=== PATIENT | female | born 1970 | race Caucasian/White ===

== ENCOUNTER 2018-01-18 06:02 | Day surgery (SDC) | payer OTHER ==
--- NOTE | 2018-01-18 07:17 | HP ---
Admitting History and Physical - Admission History of Present Illness: Patient is a 47 y/o female with a past medical history of depression and microcytic anemia. Patient presents for ect, she was recently discharged from [facility] after a 2 month stay for depression. Patient reports she received 25 ects at [facility]. Patient reports feeling well, she reports compliance with prescribed medications. She denies any suicidal or homicidal ideation, visual or auditory hallucinations. History Source: Patient Limitations to Obtaining History: No Limitations - Past Medical History ...LMP: 12/29/17 - Smoking History Smoking history: Never smoked Have you smoked in the past 12 months: No - Alcohol/Substance Use Hx Alcohol Use: No History of Substance Use: reports: None - Social History Usual Living Arrangement: Yes: Alone ADL: Independent History of Recent Travel: No Home Medications - Allergies Allergies/Adverse Reactions: Allergies Allergy/AdvReac Type Severity Reaction Status Date / Time No Known Drug Allergies Allergy Verified 01/17/18 11:46 Family Disease History - Family Disease History Family History: Denies Review of Systems - Review of Systems Constitutional: reports: No Symptoms Eyes: reports: No Symptoms HENT: reports: No Symptoms Neck: reports: No Symptoms Cardiovascular: reports: No Symptoms Respiratory: reports: No Symptoms Gastrointestinal: reports: No Symptoms Genitourinary: reports: No Symptoms Musculoskeletal: reports: No Symptoms Integumentary: reports: No Symptoms Neurological: reports: No Symptoms Endocrine: reports: No Symptoms Hematology/Lymphatic: reports: No Symptoms Psychiatric: reports: Depression Physical Examination Constitutional: Yes: Well Nourished, No Distress, Calm Eyes: Yes: WNL, Conjunctiva Clear, EOM Intact HENT: Yes: WNL, Atraumatic, Normocephalic Neck: Yes: WNL, Supple, Trachea Midline Cardiovascular: Yes: WNL, Regular Rate and Rhythm, S1, S2 Respiratory: Yes: WNL, Regular, CTA Bilaterally Gastrointestinal: Yes: WNL, Normal Bowel Sounds, Soft ...Rectal Exam: Yes: Deferred Renal/: Yes: WNL Musculoskeletal: Yes: WNL Extremities: Yes: WNL Edema: No Peripheral Pulses WNL: Yes Integumentary: Yes: WNL Neurological: Yes: WNL, Alert, Oriented ...Motor Strength: WNL Psychiatric: Yes: WNL, Alert, Oriented Labs: reviewed 5/18 Imaging - Results EKG: Image Reviewed, Other (nsr) Assessment/Plan patient is a 47 y/o female that presents for ect, labs and ekg reviewed patient is medically optimized for procedure informed consent, risks/benefits to be obtained by Dr landeros
[2018-01-18 07:50] VITALS: TEMP 98.4; BMI 26.5
[2018-01-18] MEDS ORDERED: KETAMINE HCL 500 MG/10 ML VIAL ONE (08:51)
[2018-01-18 10:05] VITALS: PULSE 77
[2018-01-18 11:27] VITALS: BP 133/83
== END 2018-01-18 10:45 | disposition home or self-care (01) ==
LOC: FECT 06:02
PROVIDERS: ATTEND Psychiatry & Neurology Psychiatry
PROC: GZB4ZZZ Other Electroconvulsive Therapy (ICD-10-PCS; principal; 2018-01-18 08:00)
DX: F33.2 Major depressive disorder, recurrent severe without psychotic features (principal)
CPT/HCPCS: 36415; 84703; 90870; 94760

== ENCOUNTER 2018-02-01 05:46 | Day surgery (SDC) | payer OTHER ==
[2018-02-01 06:47] VITALS: BMI 26.5
[2018-02-01] MEDS ORDERED: KETAMINE HCL 500 MG/10 ML VIAL ONE (07:33)
[2018-02-01 09:01] VITALS: TEMP 97.8
[2018-02-01] MEDS ORDERED: oxyCODONE HCL 5 MG TABLET PO PRN (09:29)
[2018-02-01] MEDS ORDERED: ONDANSETRON 4 MG/2 ML VIAL IVPUSH PRN (09:29)
[2018-02-01] MEDS ORDERED: LACTATED RINGERS SOLUTION 1,000 ML IV SCH (09:30)
[2018-02-01] MEDS ORDERED: ACETAMINOPHEN 325 MG TABLET (FP) PO PRN (09:42)
[2018-02-01 09:48] VITALS: BP 116/67; PULSE 71
== END 2018-02-01 10:00 | disposition home or self-care (01) ==
LOC: FECT 05:46
PROVIDERS: ATTEND Psychiatry & Neurology Psychiatry
PROC: GZB4ZZZ Other Electroconvulsive Therapy (ICD-10-PCS; principal; 2018-02-01 07:30)
DX: F33.2 Major depressive disorder, recurrent severe without psychotic features (principal)
CPT/HCPCS: 84703; 90870; 94760

== ENCOUNTER 2018-02-04 05:39 | Day surgery (SDC) | payer OTHER ==
[2018-02-02 14:54] VITALS: BMI 26.5
[2018-02-04] MEDS ORDERED: KETAMINE HCL 500 MG/10 ML VIAL ONE (06:52)
[2018-02-04] MEDS ORDERED: ACETAMINOPHEN INJECTION 100 ML IVPB ONE (06:52)
[2018-02-04 08:37] VITALS: TEMP 98.1
[2018-02-04 10:26] VITALS: BP 110/62; PULSE 86
== END 2018-02-04 10:15 | disposition home or self-care (01) ==
LOC: FECT 05:39
PROVIDERS: ATTEND Psychiatry & Neurology Psychiatry
PROC: GZB4ZZZ Other Electroconvulsive Therapy (ICD-10-PCS; principal; 2018-02-04 08:15)
DX: F33.2 Major depressive disorder, recurrent severe without psychotic features (principal)
CPT/HCPCS: 90870; 94760; J0131

== ENCOUNTER 2018-02-11 05:41 | Day surgery (SDC) | payer OTHER ==
[2018-02-11 06:45] VITALS: BMI 26.5
[2018-02-11] MEDS ORDERED: KETAMINE HCL 500 MG/10 ML VIAL ONE (07:34)
[2018-02-11] MEDS ORDERED: ACETAMINOPHEN INJECTION 100 ML IVPB ONE (08:07)
[2018-02-11 09:15] VITALS: TEMP 98.2
[2018-02-11 09:43] VITALS: BP 134/74; PULSE 88
== END 2018-02-11 09:50 | disposition home or self-care (01) ==
LOC: FECT 05:41
PROVIDERS: ATTEND Psychiatry & Neurology Psychiatry
PROC: GZB4ZZZ Other Electroconvulsive Therapy (ICD-10-PCS; principal; 2018-02-11 07:15)
DX: F33.2 Major depressive disorder, recurrent severe without psychotic features (principal)
CPT/HCPCS: 90870; 94760; J0131

== ENCOUNTER 2018-02-15 05:44 | Day surgery (SDC) | payer OTHER ==
[2018-02-15 06:24] VITALS: TEMP 97.6; BMI 29.0
[2018-02-15] MEDS ORDERED: KETAMINE HCL 500 MG/10 ML VIAL ONE (07:07)
[2018-02-15] MEDS ORDERED: ONDANSETRON 4 MG/2 ML VIAL IVPUSH PRN (09:42)
[2018-02-15] MEDS ORDERED: LACTATED RINGERS SOLUTION 1,000 ML IV SCH (09:45)
[2018-02-15 10:04] VITALS: BP 101/59; PULSE 77
== END 2018-02-15 10:06 | disposition home or self-care (01) ==
LOC: FECT 05:44
PROVIDERS: ATTEND Psychiatry & Neurology Psychiatry
PROC: GZB4ZZZ Other Electroconvulsive Therapy (ICD-10-PCS; principal; 2018-02-15 08:00)
DX: F33.2 Major depressive disorder, recurrent severe without psychotic features (principal)
CPT/HCPCS: 84703; 90870; 94760

== ENCOUNTER 2018-02-18 05:45 | Day surgery (SDC) | payer OTHER ==
[2018-02-15 10:38] VITALS: BMI 29.0
[2018-02-18] MEDS ORDERED: KETAMINE HCL 500 MG/10 ML VIAL ONE (08:11)
[2018-02-18 10:17] VITALS: TEMP 98
[2018-02-18 10:25] VITALS: BP 110/60; PULSE 76
== END 2018-02-18 09:45 | disposition home or self-care (01) ==
LOC: FECT 05:45
PROVIDERS: ATTEND Psychiatry & Neurology Psychiatry
PROC: GZB4ZZZ Other Electroconvulsive Therapy (ICD-10-PCS; principal; 2018-02-18 07:15)
DX: F33.2 Major depressive disorder, recurrent severe without psychotic features (principal)
CPT/HCPCS: 84703; 90870; 94760

== ENCOUNTER 2018-02-22 05:37 | Day surgery (SDC) | payer OTHER ==
[2018-02-15 10:41] VITALS: BMI 29.0
[2018-02-22] MEDS ORDERED: ONDANSETRON 4 MG/2 ML VIAL IVPUSH PRN (07:14)
[2018-02-22] MEDS ORDERED: LACTATED RINGERS SOLUTION 1,000 ML IV SCH (07:15)
--- NOTE | 2018-02-22 07:18 | HP ---
Admitting History and Physical - Admission History of Present Illness: Patient is a 47 y/o female with a past medical history of depression and microcytic anemia. Patient presents for ect, her last ect was 02/18/18. Patient reports feeling improved since starting ect. She denies any changes to medications or recent illnesses. Patient reports feeling well, she denies any suicidal or homicidal ideation or visual or auditory hallucinations. Patient reports compliance with prescribed medications. History Source: Patient Limitations to Obtaining History: No Limitations - Past Medical History ...LMP: 01/31/18 - Smoking History Smoking history: Never smoked Have you smoked in the past 12 months: No - Alcohol/Substance Use Hx Alcohol Use: No History of Substance Use: reports: None - Social History Usual Living Arrangement: Yes: With Spouse ADL: Independent History of Recent Travel: No Home Medications - Allergies Allergies/Adverse Reactions: Allergies Allergy/AdvReac Type Severity Reaction Status Date / Time No Known Drug Allergies Allergy Verified 02/18/18 07:23 - Home Medications Home Medications: Ambulatory Orders Brexpiprazole [Rexulti] 2 mg PO DAILY 01/18/18 Escitalopram Oxalate [Lexapro -] 20 mg PO DAILY 01/18/18 Lamotrigine [LaMICtal -] 450 mg PO HS 01/18/18 Quetiapine Fumarate [Seroquel -] 400 mg PO BID 01/18/18 clonazePAM [Klonopin -] 0.5 mg PO BID 01/18/18 Ibuprofen [Advil -] 400 mg PO QID PRN 02/15/18 Family Disease History - Family Disease History Family History: Denies Review of Systems - Review of Systems Constitutional: reports: No Symptoms Eyes: reports: No Symptoms HENT: reports: No Symptoms Neck: reports: No Symptoms Cardiovascular: reports: No Symptoms Respiratory: reports: No Symptoms Gastrointestinal: reports: No Symptoms Genitourinary: reports: No Symptoms Musculoskeletal: reports: No Symptoms Integumentary: reports: No Symptoms Neurological: reports: No Symptoms Endocrine: reports: No Symptoms Hematology/Lymphatic: reports: No Symptoms Psychiatric: reports: No Symptoms Physical Examination Vital Signs: Vital Signs Temperature 97.9 F 02/22/18 06:36 Pulse Rate 80 02/22/18 06:36 Respiratory Rate 18 02/22/18 06:36 Blood Pressure 108/69 02/22/18 06:36 O2 Sat by Pulse Oximetry (%) 97 08/28/18 06:36 Constitutional: Yes: Well Nourished, No Distress, Calm Eyes: Yes: WNL, Conjunctiva Clear, EOM Intact HENT: Yes: WNL, Atraumatic, Normocephalic Neck: Yes: WNL, Supple, Trachea Midline Cardiovascular: Yes: WNL, Regular Rate and Rhythm, S1, S2 Respiratory: Yes: WNL, Regular, CTA Bilaterally Gastrointestinal: Yes: WNL, Normal Bowel Sounds, Soft ...Rectal Exam: Yes: Deferred Renal/: Yes: WNL Breast(s): Yes: WNL Musculoskeletal: Yes: WNL Extremities: Yes: WNL Edema: No Peripheral Pulses WNL: Yes Peripheral Pulses: Left Radial: 4+, Right Radial: 4+, Left Doralis Pedis: 3+, Right Dorsalis Pedis: 3+, Left Femoral: 3+, Right Femoral: 3+ Integumentary: Yes: WNL Neurological: Yes: WNL, Alert, Oriented ...Motor Strength: WNL Psychiatric: Yes: WNL, Alert, Oriented Labs: Laboratory Tests 02/22/18 06:51 Urine HCG, Qual Negative Imaging - Results EKG: Other (nsr) Assessment/Plan patient is a 47 y/o female that presents for ect, labs and ekg reviewed patient is medically optimized for procedure informed consent risks/benefits to be obtained by Dr Arnold
[2018-02-22] MEDS ORDERED: KETAMINE HCL 500 MG/10 ML VIAL ONE (07:22)
[2018-02-22 08:57] VITALS: PULSE 77; TEMP 98.4
[2018-02-22 10:31] VITALS: BP 112/67
== END 2018-02-22 10:00 | disposition home or self-care (01) ==
LOC: FECT 05:37
PROVIDERS: ATTEND Psychiatry & Neurology Psychiatry
PROC: GZB4ZZZ Other Electroconvulsive Therapy (ICD-10-PCS; principal; 2018-02-22 07:30)
DX: F33.2 Major depressive disorder, recurrent severe without psychotic features (principal)
CPT/HCPCS: 90870; 94760

== ENCOUNTER 2018-03-01 05:40 | Day surgery (SDC) | payer OTHER ==
[2018-03-01 07:35] VITALS: BMI 29.0
[2018-03-01] MEDS ORDERED: KETAMINE HCL 500 MG/10 ML VIAL ONE (08:41)
[2018-03-01 09:30] VITALS: TEMP 98
[2018-03-01 10:13] VITALS: BP 107/71; PULSE 75
== END 2018-03-01 10:00 | disposition home or self-care (01) ==
LOC: FECT 05:40
PROVIDERS: ATTEND Psychiatry & Neurology Psychiatry
PROC: GZB4ZZZ Other Electroconvulsive Therapy (ICD-10-PCS; principal; 2018-03-01 07:45)
DX: F33.2 Major depressive disorder, recurrent severe without psychotic features (principal)
CPT/HCPCS: 84703; 90870; 94760

== ENCOUNTER 2018-03-09 05:39 | Day surgery (SDC) | payer OTHER ==
[2018-03-02 16:17] VITALS: BMI 29.0
[2018-03-09] MEDS ORDERED: KETAMINE HCL 500 MG/10 ML VIAL ONE (07:08)
[2018-03-09 08:58] VITALS: TEMP 97.9
[2018-03-09 10:28] VITALS: BP 108/68; PULSE 76
== END 2018-03-09 10:29 | disposition home or self-care (01) ==
LOC: FECT 05:39
PROVIDERS: ATTEND Psychiatry & Neurology Psychiatry
PROC: GZB4ZZZ Other Electroconvulsive Therapy (ICD-10-PCS; principal; 2018-03-09 07:00)
DX: F33.2 Major depressive disorder, recurrent severe without psychotic features (principal)
CPT/HCPCS: 84703; 90870; 94760

== ENCOUNTER 2018-03-15 06:06 | Day surgery (SDC) | payer OTHER ==
[2018-03-15 06:59] VITALS: BMI 31.2
[2018-03-15] MEDS ORDERED: KETAMINE HCL 500 MG/10 ML VIAL ONE (07:40)
[2018-03-15] MEDS ORDERED: PROMETHAZINE HCL 25 MG/1 ML VIAL IVPUSH PRN (08:33)
[2018-03-15] MEDS ORDERED: ONDANSETRON 4 MG/2 ML VIAL IVPUSH PRN (08:33)
[2018-03-15 08:44] VITALS: TEMP 98
[2018-03-15 09:22] VITALS: BP 110/77; PULSE 72
== END 2018-03-15 09:30 | disposition home or self-care (01) ==
LOC: FECT 06:06
PROVIDERS: ATTEND Psychiatry & Neurology Psychiatry
PROC: GZB4ZZZ Other Electroconvulsive Therapy (ICD-10-PCS; principal; 2018-03-15 07:00)
DX: F33.1 Major depressive disorder, recurrent, moderate (principal)
CPT/HCPCS: 84703; 90870; 94760

== ENCOUNTER 2018-03-23 05:34 | Day surgery (SDC) | payer OTHER ==
[2018-03-23] MEDS ORDERED: Pregnancy Control Solution IV ONE ×2 (06:10→06:23)
[2018-03-23 06:45] VITALS: BMI 31.1
[2018-03-23] MEDS ORDERED: LACTATED RINGERS SOLUTION 1,000 ML IV SCH (07:00)
[2018-03-23] MEDS ORDERED: KETAMINE HCL 500 MG/10 ML VIAL ONE (07:09)
[2018-03-23 08:12] VITALS: PULSE 74; TEMP 98.2
[2018-03-23 08:45] VITALS: BP 116/66
== END 2018-03-23 08:45 | disposition home or self-care (01) ==
LOC: FECT 05:34
PROVIDERS: ATTEND Psychiatry & Neurology Psychiatry
PROC: GZB4ZZZ Other Electroconvulsive Therapy (ICD-10-PCS; principal; 2018-03-23 07:00)
DX: F33.2 Major depressive disorder, recurrent severe without psychotic features (principal)
CPT/HCPCS: 84703; 90870; 94760

== ENCOUNTER 2018-03-30 05:52 | Day surgery (SDC) | payer OTHER ==
[2018-03-24 10:03] VITALS: BMI 31.1
--- NOTE | 2018-03-30 07:02 | HP ---
Admitting History and Physical - Admission History Source: Patient Limitations to Obtaining History: No Limitations - Past Medical History ...LMP: 02/28/18 ...: No - Past Surgical History Past Surgical History: Yes: None - Smoking History Smoking history: Never smoked Have you smoked in the past 12 months: No - Alcohol/Substance Use Hx Alcohol Use: No History of Substance Use: reports: None - Social History ADL: Independent History of Recent Travel: No Home Medications - Allergies Allergies/Adverse Reactions: Allergies Allergy/AdvReac Type Severity Reaction Status Date / Time No Known Drug Allergies Allergy Verified 02/18/18 07:23 - Home Medications Home Medications: Ambulatory Orders Brexpiprazole [Rexulti] 2 mg PO DAILY 01/18/18 Escitalopram Oxalate [Lexapro -] 20 mg PO DAILY 01/18/18 Lamotrigine [LaMICtal -] 450 mg PO HS 01/18/18 clonazePAM [Klonopin -] 0.5 mg PO BID 01/18/18 Ibuprofen [Advil -] 400 mg PO QID PRN 02/15/18 Topiramate [Topamax] 25 mg PO BID 03/01/18 Quetiapine Fumarate [Seroquel -] 350 mg PO BID 03/09/18 Review of Systems - Review of Systems Constitutional: reports: No Symptoms Eyes: reports: No Symptoms HENT: reports: No Symptoms Neck: reports: No Symptoms Cardiovascular: reports: No Symptoms Respiratory: reports: No Symptoms Gastrointestinal: reports: No Symptoms Genitourinary: reports: No Symptoms Breasts: reports: No Symptoms Reported Musculoskeletal: reports: No Symptoms Integumentary: reports: No Symptoms Neurological: reports: No Symptoms Endocrine: reports: No Symptoms Physical Examination Vital Signs: Vital Signs Temperature 97.8 F 03/30/18 06:45 Pulse Rate 78 03/30/18 06:45 Respiratory Rate 18 03/30/18 06:45 Blood Pressure 110/70 03/30/18 06:45 O2 Sat by Pulse Oximetry (%) 100 03/30/18 06:45 Constitutional: Yes: Well Nourished Eyes: Yes: WNL HENT: Yes: WNL Neck: Yes: WNL Cardiovascular: Yes: WNL Respiratory: Yes: WNL Gastrointestinal: Yes: WNL ...Rectal Exam: Yes: Deferred Renal/: Yes: Other Breast(s): Yes: Other Musculoskeletal: Yes: WNL Extremities: Yes: WNL Imaging - Results EKG: Image Reviewed Assessment/Plan Patient is a 47 year old female with a past medical history of severe depression (with poor response to varous medications) and microcytic anemia. Patient presents today for an ECT. Her last ECT was on 03/23/2018. She denies any changes to medications or recent illnesses. Denies chest pain, denies shortness of breath or malaise. Patient reports feeling well, she denies any suicidal or homicidal ideation or visual or auditory hallucinations. Patient reports compliance with prescribed medications. Patient is medically cleared for scheduled ECT.
[2018-03-30] MEDS ORDERED: ONDANSETRON 4 MG/2 ML VIAL IVPUSH PRN (07:26)
[2018-03-30] MEDS ORDERED: LACTATED RINGERS SOLUTION 1,000 ML IV SCH (07:30)
[2018-03-30] MEDS ORDERED: KETAMINE HCL 500 MG/10 ML VIAL ONE (07:42)
[2018-03-30 09:29] VITALS: TEMP 98.1
[2018-03-30 09:41] VITALS: BP 113/73; PULSE 82
== END 2018-03-30 10:00 | disposition home or self-care (01) ==
LOC: FECT 05:52
PROVIDERS: ATTEND Psychiatry & Neurology Psychiatry
PROC: GZB4ZZZ Other Electroconvulsive Therapy (ICD-10-PCS; principal; 2018-03-30 07:30)
DX: F33.2 Major depressive disorder, recurrent severe without psychotic features (principal)
CPT/HCPCS: 84703; 90870; 94760

== ENCOUNTER 2018-04-12 06:48 | Day surgery (SDC) | payer OTHER ==
[2018-04-12 07:44] VITALS: TEMP 98; BMI 31.1
[2018-04-12] MEDS ORDERED: KETOROLAC TROMETHAMINE 30 MG/1 ML VIAL ONE (08:28)
[2018-04-12] MEDS ORDERED: KETAMINE HCL 500 MG/10 ML VIAL ONE (08:29)
[2018-04-12 10:15] VITALS: BP 100/67; PULSE 77
== END 2018-04-12 10:15 | disposition home or self-care (01) ==
LOC: FECT 06:48
PROVIDERS: ATTEND Psychiatry & Neurology Psychiatry
PROC: GZB4ZZZ Other Electroconvulsive Therapy (ICD-10-PCS; principal; 2018-04-12 08:00)
DX: F33.2 Major depressive disorder, recurrent severe without psychotic features (principal)
CPT/HCPCS: 84703; 90870; 94760

== ENCOUNTER 2018-04-19 05:46 | Day surgery (SDC) | payer OTHER ==
[2018-04-19 07:26] VITALS: BMI 31.1
[2018-04-19] MEDS ORDERED: KETAMINE HCL 500 MG/10 ML VIAL ONE (07:39)
[2018-04-19 09:11] VITALS: TEMP 98.5
[2018-04-19 09:28] VITALS: BP 106/66; PULSE 77
== END 2018-04-19 09:50 | disposition home or self-care (01) ==
LOC: FECT 05:46
PROVIDERS: ATTEND Psychiatry & Neurology Psychiatry
PROC: GZB4ZZZ Other Electroconvulsive Therapy (ICD-10-PCS; principal; 2018-04-19 07:45)
DX: F33.2 Major depressive disorder, recurrent severe without psychotic features (principal)
CPT/HCPCS: 84703; 90870; 94760

== ENCOUNTER 2018-04-26 05:39 | Day surgery (SDC) | payer OTHER ==
[2018-04-26 07:14] VITALS: BMI 31.1
[2018-04-26] MEDS ORDERED: KETAMINE HCL 500 MG/10 ML VIAL ONE (07:54)
[2018-04-26 09:35] VITALS: TEMP 98.7
[2018-04-26 09:36] VITALS: BP 120/74; PULSE 77
== END 2018-04-26 09:40 | disposition home or self-care (01) ==
LOC: FECT 05:39
PROVIDERS: ATTEND Psychiatry & Neurology Psychiatry
PROC: GZB4ZZZ Other Electroconvulsive Therapy (ICD-10-PCS; principal; 2018-04-26 08:00)
DX: F33.2 Major depressive disorder, recurrent severe without psychotic features (principal)
CPT/HCPCS: 84703; 90870; 94760

== ENCOUNTER 2018-05-05 05:42 | Day surgery (SDC) | payer OTHER ==
[2018-05-05 08:26] VITALS: BMI 32.3
--- NOTE | 2018-05-05 08:33 | HP ---
Admitting History and Physical - Admission History of Present Illness: Patient is a 47-year-old obese female with a past medical history of depression and anemia. Patient presents for ect, she has been undergoing ect earlier this year, her last ect was 04/26/18. patient does report a slight improvement to her depressive symptoms since starting ect. She denies any changes to her medications. Patient denies any recent illnesses or hospitalizations. Patient denies any suicidal or homicidal ideation, visual or auditory hallucinations. History Source: Patient Limitations to Obtaining History: No Limitations - Past Medical History ...LMP: 05/01/18 - Past Surgical History Past Surgical History: Yes: None - Smoking History Smoking history: Never smoked Have you smoked in the past 12 months: No - Alcohol/Substance Use Hx Alcohol Use: No History of Substance Use: reports: None - Social History Usual Living Arrangement: Yes: With Spouse ADL: Independent History of Recent Travel: No Home Medications - Allergies Allergies/Adverse Reactions: Allergies Allergy/AdvReac Type Severity Reaction Status Date / Time No Known Drug Allergies Allergy Verified 02/18/18 07:23 - Home Medications Home Medications: Ambulatory Orders Escitalopram Oxalate [Lexapro -] 20 mg PO DAILY 01/18/18 Lamotrigine [LaMICtal -] 450 mg PO HS 01/18/18 clonazePAM [Klonopin -] 0.5 mg PO BID 01/18/18 Quetiapine Fumarate [Seroquel -] 350 mg PO BID 03/09/18 Brexpiprazole [Rexulti] 2 mg PO DAILY 04/26/18 Family Disease History - Family Disease History Family History: Denies Review of Systems - Review of Systems Constitutional: reports: No Symptoms Eyes: reports: No Symptoms HENT: reports: No Symptoms Neck: reports: No Symptoms Cardiovascular: reports: No Symptoms Respiratory: reports: No Symptoms Gastrointestinal: reports: No Symptoms Genitourinary: reports: No Symptoms Musculoskeletal: reports: No Symptoms Integumentary: reports: No Symptoms Neurological: reports: No Symptoms Endocrine: reports: No Symptoms Hematology/Lymphatic: reports: No Symptoms Psychiatric: reports: No Symptoms Physical Examination Vital Signs: Vital Signs Temperature 98.4 F 05/05/18 08:22 Pulse Rate 74 05/05/18 08:22 Respiratory Rate 20 05/05/18 08:22 Blood Pressure 126/74 05/05/18 08:22 O2 Sat by Pulse Oximetry (%) 99 05/05/18 08:22 Constitutional: Yes: Well Nourished, No Distress, Calm Eyes: Yes: WNL, Conjunctiva Clear, EOM Intact HENT: Yes: WNL, Atraumatic, Normocephalic Neck: Yes: WNL, Supple, Trachea Midline Cardiovascular: Yes: WNL, Regular Rate and Rhythm, S1, S2 Respiratory: Yes: WNL, Regular, CTA Bilaterally Gastrointestinal: Yes: WNL, Normal Bowel Sounds, Soft ...Rectal Exam: Yes: Deferred Renal/: Yes: WNL Musculoskeletal: Yes: WNL Extremities: Yes: WNL Edema: No Peripheral Pulses WNL: Yes Peripheral Pulses: Left Radial: 4+, Right Radial: 4+, Left Doralis Pedis: 3+, Right Dorsalis Pedis: 3+, Left Femoral: 3+, Right Femoral: 3+ Integumentary: Yes: WNL Neurological: Yes: WNL, Alert, Oriented ...Motor Strength: WNL Psychiatric: Yes: WNL, Alert, Oriented Labs: reviewed 11/12 Imaging - Results EKG: Image Reviewed, Other (nsr) Assessment/Plan patient is a 47 y/o female that presents for ect, labs and ekg reviewed pateient is medically optimized for procedure
[2018-05-05] MEDS ORDERED: KETAMINE HCL 500 MG/10 ML VIAL ONE (08:50)
[2018-05-05 10:11] VITALS: TEMP 98.5
[2018-05-05 12:40] VITALS: BP 124/70; PULSE 76
== END 2018-05-05 12:44 | disposition home or self-care (01) ==
LOC: FECT 05:42
PROVIDERS: ATTEND Psychiatry & Neurology Psychiatry
PROC: GZB4ZZZ Other Electroconvulsive Therapy (ICD-10-PCS; principal; 2018-05-05 08:30)
DX: F33.2 Major depressive disorder, recurrent severe without psychotic features (principal)
CPT/HCPCS: 84703; 90870; 94760

== ENCOUNTER 2018-05-10 05:45 | Day surgery (SDC) | payer OTHER ==
[2018-05-10 06:42] VITALS: BMI 32.3
[2018-05-10] MEDS ORDERED: KETAMINE HCL 500 MG/10 ML VIAL ONE (07:00)
[2018-05-10 08:16] VITALS: TEMP 97.8
[2018-05-10 09:10] VITALS: BP 120/76; PULSE 69
--- NOTE | 2018-05-10 16:12 | EKG ---
Test Reason : Blood Pressure : / mmHG Vent. Rate : 074 BPM Atrial Rate : 074 BPM P-R Int : 184 ms QRS Dur : 086 ms QT Int : 424 ms P-R-T Axes : 062 072 061 degrees QTc Int : 470 ms NORMAL SINUS RHYTHM LOW VOLTAGE QRS CANNOT RULE OUT ANTERIOR INFARCT , AGE UNDETERMINED ABNORMAL ECG NO PREVIOUS ECGS AVAILABLE Confirmed by MD Gerald, Arben ([id number]) on 05/10/2018 4:12:00 PM Referred By: Dedrick Arnold Confirmed By:Arben Duarte MD
== END 2018-05-10 10:00 | disposition home or self-care (01) ==
LOC: FECT 05:45
PROVIDERS: ATTEND Psychiatry & Neurology Psychiatry
PROC: GZB4ZZZ Other Electroconvulsive Therapy (ICD-10-PCS; principal; 2018-05-10 07:00)
DX: F33.2 Major depressive disorder, recurrent severe without psychotic features (principal)
CPT/HCPCS: 84703; 90870; 93005; 94760

== ENCOUNTER 2018-05-17 05:50 | Day surgery (SDC) | payer OTHER ==
[2018-05-17 06:55] VITALS: BMI 32.8
[2018-05-17] MEDS ORDERED: KETAMINE HCL 500 MG/10 ML VIAL ONE (07:22)
[2018-05-17 08:09] VITALS: TEMP 97.7
[2018-05-17 08:50] LABS: HEMATOCRIT 31.1 % (32.4-45.2); HEMOGLOBIN 10.1 GM/dl (10.7-15.3); MEAN CELL VOLUME 77.9 fl (80-96); WHITE BLOOD COUNT 5.8 K/mm3 (4.0-10.8)
[2018-05-17 08:51] LABS: BASO % 0.7 % (0-2.0); EOS % 3.5 % (0-4.5); LYMPH % 34.1 % (8-40); MCH 25.2 pg (25.7-33.7); MCHC 32.3 g/dl (32.0-36.0); MEAN PLT VOLUME 8.1 fl (7.5-11.1); NEUT % 52.2 % (42.8-82.8); PLATELET COUNT 262 K/MM3 (134-434); RDW 15.9 % (11.6-15.6)
[2018-05-17 09:05] LABS: ALBUMIN 3.6 g/dl (3.5-5.0); ALK PHOS 88 U/L (32-92); ANION GAP 2 MMOL/L (8-16); BILIRUBIN,TOTAL 0.2 mg/dl (0.2-1.0); BLOOD UREA NITROGEN 19 mg/dl (7-18); CALCIUM 8.6 mg/dl (8.4-10.2); CHLORIDE 107 mmol/L (98-107); CO2 27 mmol/L (22-28); CREATININE 0.7 mg/dl (0.6-1.3); GLUCOSE,RANDOM 102 mg/dl (74-106); MAGNESIUM 1.9 mg/dL (1.8-2.4); POTASSIUM 4.5 mmol/L (3.5-5.1); SGOT/AST 24 U/L (10-42); SGPT/ALT 20 U/L (10-40); SODIUM 136 mmol/L (136-145); TOT PROT 6.3 g/dl (6.4-8.3)
[2018-05-17 10:02] VITALS: BP 125/79; PULSE 89
== END 2018-05-17 09:45 | disposition home or self-care (01) ==
LOC: FECT 05:50
PROVIDERS: ATTEND Psychiatry & Neurology Psychiatry
PROC: GZB4ZZZ Other Electroconvulsive Therapy (ICD-10-PCS; principal; 2018-05-17 07:45)
DX: F33.2 Major depressive disorder, recurrent severe without psychotic features (principal)
CPT/HCPCS: 36415; 80053; 83735; 84703; 85025; 90870; 94760

== ENCOUNTER 2018-05-24 05:44 | Day surgery (SDC) | payer OTHER ==
[2018-05-17 10:44] VITALS: BMI 32.8
[2018-05-24] MEDS ORDERED: KETAMINE HCL 500 MG/10 ML VIAL ONE (07:34)
[2018-05-24] MEDS ORDERED: ONDANSETRON 4 MG/2 ML VIAL IVPUSH PRN (08:06)
[2018-05-24] MEDS ORDERED: LACTATED RINGERS SOLUTION 1,000 ML IV SCH (08:15)
[2018-05-24 10:49] VITALS: BP 126/67; PULSE 82; TEMP 98.2
== END 2018-05-24 10:20 | disposition home or self-care (01) ==
LOC: FECT 05:44
PROVIDERS: ATTEND Psychiatry & Neurology Psychiatry
PROC: GZB4ZZZ Other Electroconvulsive Therapy (ICD-10-PCS; principal; 2018-05-24 07:15)
DX: F33.2 Major depressive disorder, recurrent severe without psychotic features (principal)
CPT/HCPCS: 84703; 90870; 94760

== ENCOUNTER 2018-05-31 05:45 | Day surgery (SDC) | payer OTHER ==
[2018-05-24 14:31] VITALS: BMI 32.9
[2018-05-31] MEDS ORDERED: ONDANSETRON 4 MG/2 ML VIAL IVPUSH PRN (07:18)
[2018-05-31] MEDS ORDERED: KETAMINE HCL 500 MG/10 ML VIAL ONE (07:27)
[2018-05-31 08:38] VITALS: TEMP 97.6
--- NOTE | 2018-05-31 09:52 | HP ---
CHIEF COMPLAINT: Major Depressive Disorder PCP: Dr. Dallas Lashmeet Primary psych: Dr. Pickering [place] HISTORY OF PRESENT ILLNESS: 47 year-old female with a PMH significant for major depressive disorder. Patient started ECT Summer 2017. She presents today for ECT. Recent events: None-no change in meds PAST MEDICAL HISTORY: Major depressive disorder PAST SURGICAL HISTORY: None reported Social History: Smoking: never Alcohol: no Drugs: no Family History: Allergies No Known Drug Allergies Allergy (Verified 05/24/18 14:28) HOME MEDICATIONS: Home Medications Medication Instructions Recorded Escitalopram Oxalate [Lexapro -] 20 mg PO DAILY 01/18/18 Lamotrigine [LaMICtal -] 450 mg PO HS 01/18/18 clonazePAM [Klonopin -] 0.5 mg PO BID 01/18/18 Quetiapine Fumarate [Seroquel -] 350 mg PO BID 03/09/18 Brexpiprazole [Rexulti] 2 mg PO DAILY 04/26/18 REVIEW OF SYSTEMS CONSTITUTIONAL: Absent: fever, chills, diaphoresis, generalized weakness, malaise, loss of appetite, weight change HEENT: Absent: rhinorrhea, nasal congestion, throat pain, throat swelling, difficulty swallowing, mouth swelling, ear pain, eye pain, visual changes CARDIOVASCULAR: Absent: chest pain, syncope, palpitations, irregular heart rate, lightheadedness , peripheral edema RESPIRATORY: Absent: cough, shortness of breath, dyspnea with exertion, orthopnea, wheezing, stridor, hemoptysis GASTROINTESTINAL: Absent: abdominal pain, abdominal distension, nausea, vomiting, diarrhea, constipation, melena, hematochezia GENITOURINARY: Absent: dysuria, frequency, urgency, hesitancy, hematuria, flank pain, genital pain MUSCULOSKELETAL: Absent: myalgia, arthralgia, joint swelling, back pain, neck pain SKIN: Absent: rash, itching, pallor HEMATOLOGIC/IMMUNOLOGIC: Absent: easy bleeding, easy bruising, lymphadenopathy, frequent infections ENDOCRINE: Absent: unexplained weight gain, unexplained weight loss, heat intolerance, cold intolerance NEUROLOGIC: Absent: headache, focal weakness or paresthesias, dizziness, unsteady gait, seizure, mental status changes, bladder or bowel incontinence PSYCHIATRIC: Absent: anxiety, depression, suicidal or homicidal ideation, hallucinations. PHYSICAL EXAMINATION Vital Signs - 24 hr 05/31/18 05/31/18 05/31/18 07:09 08:05 08:10 Temperature 98.1 F Pulse Rate 75 94 H 86 Respiratory 18 15 14 Rate Blood Pressure 104/69 152/87 120/67 O2 Sat by Pulse 97 94 L 95 Oximetry (%) GENERAL: Awake, alert, and fully oriented, in no acute distress. HEAD: Normal with no signs of trauma. EYES: Pupils equal, round and reactive to light, extraocular movements intact, sclera anicteric, conjunctiva clear. No lid lag. LUNGS: Breath sounds equal, clear to auscultation bilaterally. No wheezes, and no crackles. No accessory muscle use. HEART: Regular rate and rhythm, normal S1 and S2 without murmur, rub or gallop. ABDOMEN: Soft, nontender, not distended UPPER EXTREMITIES: 2+ pulses, warm, well-perfused. No cyanosis. No clubbing. No peripheral edema. LOWER EXTREMITIES: 2+ pulses, warm, well-perfused. No calf tenderness. No peripheral edema. NEUROLOGICAL: Cranial nerves II-XII intact. Normal speech. Normal gait. Laboratory Results - last 24 hr 05/31/18 06:59 Urine HCG, Qual Negative ASSESSMENT/PLAN Cardiac --no cardiac history --Revised Cardiac Risk Index for Pre-Operative Risk: 0 points, 0.4% risk of major cardiac event Pulmonary --no pulmonary history Neurological --no neurological or neurosurgical history; no history of trauma Anesthesia --no known history of problems with anesthesia ECT is a low risk procedure. The relative benefits of the planned procedure outweigh the relative risks for this patient at this time. Visit type - Emergency Visit Emergency Visit: No - New Patient This patient is new to me today: Yes Date on this admission: 05/31/18 - Critical Care Critical Care patient: No
[2018-05-31 10:07] VITALS: BP 120/78; PULSE 80
== END 2018-05-31 09:55 | disposition home or self-care (01) ==
LOC: FECT 05:45
PROVIDERS: ATTEND Psychiatry & Neurology Psychiatry
PROC: GZB4ZZZ Other Electroconvulsive Therapy (ICD-10-PCS; principal; 2018-05-31 08:00)
DX: F32.9 Major depressive disorder, single episode, unspecified (principal)
CPT/HCPCS: 84703; 90870; 94760

== ENCOUNTER 2018-06-07 05:43 | Day surgery (SDC) | payer OTHER ==
[2018-05-31 14:43] VITALS: BMI 32.9
[2018-06-07] MEDS ORDERED: KETAMINE HCL 500 MG/10 ML VIAL ONE (07:22)
[2018-06-07 08:39] VITALS: PULSE 80; TEMP 97.9
[2018-06-07 09:05] VITALS: BP 120/72
== END 2018-06-07 10:05 | disposition home or self-care (01) ==
LOC: FECT 05:43
PROVIDERS: ATTEND Psychiatry & Neurology Psychiatry
PROC: GZB4ZZZ Other Electroconvulsive Therapy (ICD-10-PCS; principal; 2018-06-07 07:15)
DX: F33.2 Major depressive disorder, recurrent severe without psychotic features (principal)
CPT/HCPCS: 84703; 90870; 94760

== ENCOUNTER 2018-06-14 05:48 | Day surgery (SDC) | payer OTHER ==
[2018-06-14 07:52] VITALS: BMI 34.0
[2018-06-14] MEDS ORDERED: KETAMINE HCL 500 MG/10 ML VIAL ONE (08:51)
[2018-06-14 09:46] VITALS: TEMP 98.2
[2018-06-14 09:54] VITALS: BP 121/76; PULSE 72
== END 2018-06-14 09:56 | disposition home or self-care (01) ==
LOC: FECT 05:48
PROVIDERS: ATTEND Psychiatry & Neurology Psychiatry
PROC: GZB4ZZZ Other Electroconvulsive Therapy (ICD-10-PCS; principal; 2018-06-14 08:00)
DX: F33.2 Major depressive disorder, recurrent severe without psychotic features (principal)
CPT/HCPCS: 84703; 90870; 94760

== ENCOUNTER 2018-06-22 05:48 | Day surgery (SDC) | payer OTHER ==
[2018-06-22 07:02] VITALS: BMI 34.0
[2018-06-22] MEDS ORDERED: KETAMINE HCL 500 MG/10 ML VIAL ONE (07:15)
[2018-06-22 08:44] VITALS: TEMP 97.9
[2018-06-22 10:06] VITALS: BP 124/77; PULSE 71
== END 2018-06-22 09:50 | disposition home or self-care (01) ==
LOC: FECT 05:48
PROVIDERS: ATTEND Psychiatry & Neurology Psychiatry
PROC: GZB4ZZZ Other Electroconvulsive Therapy (ICD-10-PCS; principal; 2018-06-22 07:15)
DX: F33.2 Major depressive disorder, recurrent severe without psychotic features (principal)
CPT/HCPCS: 84703; 90870; 94760

== ENCOUNTER 2018-07-05 05:46 | Day surgery (SDC) | payer OTHER ==
[2018-07-05 06:44] VITALS: TEMP 97.9; BMI 34.0
[2018-07-05] MEDS ORDERED: ACETAMINOPHEN 325 MG TABLET (FP) PO PRN (07:38)
[2018-07-05] MEDS ORDERED: ONDANSETRON 4 MG/2 ML VIAL IVPUSH PRN (07:38)
[2018-07-05] MEDS ORDERED: LACTATED RINGERS SOLUTION 1,000 ML IV SCH (07:45)
[2018-07-05] MEDS ORDERED: KETAMINE HCL SYRINGES 150 MG/3 ML VIAL ONE (07:47)
--- NOTE | 2018-07-05 09:20 | HP ---
CHIEF COMPLAINT: Major Depressive Disorder PCP: Dr. Dallas [place] Primary psych: Dr. Pickering [place] HISTORY OF PRESENT ILLNESS: 47 year-old female with a PMH significant for major depressive disorder. Patient started ECT Summer 2017. She presents today for ECT. Recent events: * None reported PAST MEDICAL HISTORY: Major depressive disorder PAST SURGICAL HISTORY: None reported Social History: Smoking: never Alcohol: no Drugs: no Allergies No Known Drug Allergies Allergy (Verified 06/14/18 16:10) HOME MEDICATIONS: Home Medications Medication Instructions Recorded Escitalopram Oxalate [Lexapro -] 20 mg PO DAILY 01/18/18 Lamotrigine [LaMICtal -] 450 mg PO HS 01/18/18 clonazePAM [Klonopin -] 0.5 mg PO BID 01/18/18 Quetiapine Fumarate [Seroquel -] 350 mg PO BID 03/09/18 Brexpiprazole [Rexulti] 2 mg PO DAILY 04/26/18 REVIEW OF SYSTEMS CONSTITUTIONAL: Absent: fever, chills, diaphoresis, generalized weakness, malaise, loss of appetite, weight change HEENT: Absent: rhinorrhea, nasal congestion, throat pain, throat swelling, difficulty swallowing, mouth swelling, ear pain, eye pain, visual changes CARDIOVASCULAR: Absent: chest pain, syncope, palpitations, irregular heart rate, lightheadedness , peripheral edema RESPIRATORY: Absent: cough, shortness of breath, dyspnea with exertion, orthopnea, wheezing, stridor, hemoptysis GASTROINTESTINAL: Absent: abdominal pain, abdominal distension, nausea, vomiting, diarrhea, constipation, melena, hematochezia GENITOURINARY: Absent: dysuria, frequency, urgency, hesitancy, hematuria, flank pain, genital pain MUSCULOSKELETAL: Absent: myalgia, arthralgia, joint swelling, back pain, neck pain SKIN: Absent: rash, itching, pallor HEMATOLOGIC/IMMUNOLOGIC: Absent: easy bleeding, easy bruising, lymphadenopathy, frequent infections ENDOCRINE: Absent: unexplained weight gain, unexplained weight loss, heat intolerance, cold intolerance NEUROLOGIC: Absent: headache, focal weakness or paresthesias, dizziness, unsteady gait, seizure, mental status changes, bladder or bowel incontinence PHYSICAL EXAMINATION Vital Signs - 24 hr 07/05/18 07/05/18 07/05/18 06:40 08:05 08:10 Temperature 97.9 F Pulse Rate 80 97 H 87 Respiratory 18 16 15 Rate Blood Pressure 101/64 135/80 124/67 O2 Sat by Pulse 96 96 97 Oximetry (%) 07/05/18 07/05/18 07/05/18 08:15 08:20 08:35 Temperature 97.5 F L Pulse Rate 85 80 76 Respiratory 13 14 18 Rate Blood Pressure 118/64 107/69 104/69 O2 Sat by Pulse 97 100 95 Oximetry (%) 07/05/18 08:36 Temperature 97.9 F Pulse Rate 78 Respiratory 14 Rate Blood Pressure 114/67 O2 Sat by Pulse Oximetry (%) GENERAL: Awake, alert, and fully oriented, in no acute distress. HEAD: Normal with no signs of trauma. EYES: Pupils equal, round and reactive to light, sclera anicteric, conjunctiva clear. LUNGS: Breath sounds equal, clear to auscultation bilaterally. No wheezes, and no crackles. No accessory muscle use. HEART: Regular rate and rhythm, normal S1 and S2 ABDOMEN: Soft, nontender, not distended MUSCULOSKELETAL: Normal range of motion at all joints. No bony deformities or tenderness. No CVA tenderness. UPPER EXTREMITIES: 2+ pulses, warm, well-perfused. No cyanosis. No clubbing. No peripheral edema. LOWER EXTREMITIES: 2+ pulses, warm, well-perfused. No calf tenderness. No peripheral edema. NEUROLOGICAL: Cranial nerves II-XII intact. Normal speech. Laboratory Results - last 24 hr 07/05/18 06:15 Urine HCG, Qual Negative ASSESSMENT/PLAN: 47 year-old female with a PMH significant for major depressive disorder. She presents today for ECT. Cardiac --no cardiac history --Revised Cardiac Risk Index for Pre-Operative Risk: 0 points, 0.4% risk of major cardiac event Pulmonary --no pulmonary history Neurological --no neurological or neurosurgical history; no history of trauma Anesthesia --no reported problems with anesthesia ECT is a low risk procedure. The relative benefits of the planned procedure outweigh the relative risks for this patient at this time. Visit type - Emergency Visit Emergency Visit: No - New Patient This patient is new to me today: Yes Date on this admission: 07/05/18 - Critical Care Critical Care patient: No
[2018-07-05 09:30] VITALS: BP 101/65; PULSE 74
== END 2018-07-05 09:52 | disposition home or self-care (01) ==
LOC: FECT 05:46
PROVIDERS: ATTEND Psychiatry & Neurology Psychiatry
PROC: GZB4ZZZ Other Electroconvulsive Therapy (ICD-10-PCS; principal; 2018-07-05 07:00)
DX: F32.9 Major depressive disorder, single episode, unspecified (principal)
CPT/HCPCS: 84703; 90870; 94760

== ENCOUNTER 2018-07-13 05:55 | Day surgery (SDC) | payer OTHER ==
[~2018-07-13 05:55] MED LIST: ONDANSETRON 4 MG/2 ML VIAL IVPUSH PRN
[2018-07-13 07:03] VITALS: BMI 34.0
[2018-07-13] MEDS ORDERED: KETAMINE HCL SYRINGES 150 MG/3 ML VIAL ONE (07:17)
[2018-07-13 08:22] VITALS: TEMP 98.1
[2018-07-13 09:07] VITALS: BP 129/69; PULSE 78
== END 2018-07-13 08:45 | disposition home or self-care (01) ==
LOC: FECT 05:55
PROVIDERS: ATTEND Psychiatry & Neurology Psychiatry
PROC: GZB4ZZZ Other Electroconvulsive Therapy (ICD-10-PCS; principal; 2018-07-13 07:15)
DX: F33.2 Major depressive disorder, recurrent severe without psychotic features (principal)
CPT/HCPCS: 84703; 90870; 94760

== ENCOUNTER 2018-07-19 05:45 | Day surgery (SDC) | payer OTHER ==
[2018-07-19 06:36] VITALS: BMI 34.0
[2018-07-19] MEDS ORDERED: KETAMINE HCL SYRINGES 150 MG/3 ML VIAL ONE (07:13)
[2018-07-19 08:09] VITALS: TEMP 98.3
[2018-07-19 11:28] VITALS: BP 110/72; PULSE 88
== END 2018-07-19 10:40 | disposition home or self-care (01) ==
LOC: FECT 05:45
PROVIDERS: ATTEND Psychiatry & Neurology Psychiatry
PROC: GZB4ZZZ Other Electroconvulsive Therapy (ICD-10-PCS; principal; 2018-07-19 07:15)
DX: F33.2 Major depressive disorder, recurrent severe without psychotic features (principal)
CPT/HCPCS: 84703; 90870; 94760

== ENCOUNTER 2018-07-26 05:45 | Day surgery (SDC) | payer OTHER ==
[2018-07-26 07:32] VITALS: TEMP 98.1; BMI 34.0
[2018-07-26] MEDS ORDERED: KETAMINE HCL SYRINGES 150 MG/3 ML ONE (08:38)
[2018-07-26] MEDS ORDERED: ACETAMINOPHEN 325 MG TABLET (FP) PO PRN (08:47)
[2018-07-26] MEDS ORDERED: ONDANSETRON 4 MG/2 ML VIAL IVPUSH PRN (08:47)
[2018-07-26 10:12] VITALS: BP 130/80; PULSE 88
== END 2018-07-26 09:55 | disposition home or self-care (01) ==
LOC: FECT 05:45
PROVIDERS: ATTEND Psychiatry & Neurology Psychiatry
PROC: GZB4ZZZ Other Electroconvulsive Therapy (ICD-10-PCS; principal; 2018-07-26 07:30)
DX: F33.2 Major depressive disorder, recurrent severe without psychotic features (principal)
CPT/HCPCS: 84703; 90870; 94760

== ENCOUNTER 2018-08-02 05:46 | Day surgery (SDC) | payer OTHER ==
[2018-07-26 13:59] VITALS: BMI 34.0
[2018-08-02] MEDS ORDERED: KETAMINE HCL SYRINGES 150 MG/3 ML ONE (07:10)
[2018-08-02 08:19] VITALS: TEMP 98.9
--- NOTE | 2018-08-02 08:48 | HP ---
CHIEF COMPLAINT: Major Depressive Disorder PCP: Dr. Dallas Gargatha Primary psych: Dr. Pickering Arbon HISTORY OF PRESENT ILLNESS: 47 year-old female with a PMH significant for major depressive disorder. Patient started ECT Summer 2017. She presents today for ECT. Recent events: * None reported PAST MEDICAL HISTORY: Major depressive disorder PAST SURGICAL HISTORY: None reported Social History: Smoking: never Alcohol: no Drugs: no Allergies No Known Drug Allergies Allergy (Verified 06/14/18 16:10) HOME MEDICATIONS: Home Medications Medication Instructions Recorded Escitalopram Oxalate [Lexapro -] 20 mg PO DAILY 01/18/18 Lamotrigine [LaMICtal -] 450 mg PO HS 01/18/18 clonazePAM [Klonopin -] 0.5 mg PO BID 01/18/18 Quetiapine Fumarate [Seroquel -] 350 mg PO BID 03/09/18 Brexpiprazole [Rexulti] 2 mg PO DAILY 04/26/18 Cannabidiol (Cbd) Extract 100 mg PO HS 08/02/18 [Epidiolex] REVIEW OF SYSTEMS CONSTITUTIONAL: Absent: fever, chills, diaphoresis, generalized weakness, malaise, loss of appetite, weight change HEENT: Absent: rhinorrhea, nasal congestion, throat pain, throat swelling, difficulty swallowing, mouth swelling, ear pain, eye pain, visual changes CARDIOVASCULAR: Absent: chest pain, syncope, palpitations, irregular heart rate, lightheadedness , peripheral edema RESPIRATORY: Absent: cough, shortness of breath, dyspnea with exertion, orthopnea, wheezing, stridor, hemoptysis GASTROINTESTINAL: Absent: abdominal pain, abdominal distension, nausea, vomiting, diarrhea, constipation, melena, hematochezia GENITOURINARY: Absent: dysuria, frequency, urgency, hesitancy, hematuria, flank pain, genital pain MUSCULOSKELETAL: Absent: myalgia, arthralgia, joint swelling, back pain, neck pain SKIN: Absent: rash, itching, pallor HEMATOLOGIC/IMMUNOLOGIC: Absent: easy bleeding, easy bruising, lymphadenopathy, frequent infections ENDOCRINE: Absent: unexplained weight gain, unexplained weight loss, heat intolerance, cold intolerance NEUROLOGIC: Absent: headache, focal weakness or paresthesias, dizziness, unsteady gait, seizure, mental status changes, bladder or bowel incontinence PHYSICAL EXAMINATION Vital Signs - 24 hr 08/02/18 08/02/18 08/02/18 06:31 07:31 07:35 Temperature 99.1 F Pulse Rate 100 H 101 H 101 H Respiratory 18 16 16 Rate Blood Pressure 116/73 117/61 107/54 L O2 Sat by Pulse 97 91 L 93 L Oximetry (%) 08/02/18 08/02/18 08/02/18 07:40 07:45 07:50 Temperature Pulse Rate 98 H 94 H 93 H Respiratory 16 18 18 Rate Blood Pressure 97/57 L 100/58 L 96/50 L O2 Sat by Pulse 95 95 92 L Oximetry (%) 08/02/18 08/02/18 08/02/18 07:55 07:57 08:05 Temperature 98.9 F Pulse Rate 92 H 92 H 90 Respiratory 18 18 18 Rate Blood Pressure 98/56 L 98/56 L 103/57 L O2 Sat by Pulse 95 95 Oximetry (%) 08/02/18 08:35 Temperature 98.9 F Pulse Rate 88 Respiratory 18 Rate Blood Pressure 103/59 L O2 Sat by Pulse 95 Oximetry (%) GENERAL: Awake, alert, and fully oriented, in no acute distress. HEAD: Normal with no signs of trauma. EYES: Pupils equal, round and reactive to light, sclera anicteric, conjunctiva clear. LUNGS: Breath sounds equal, clear to auscultation bilaterally. No wheezes, and no crackles. No accessory muscle use. HEART: Regular rate and rhythm, normal S1 and S2 ABDOMEN: Soft, nontender, not distended MUSCULOSKELETAL: Normal range of motion at all joints. No bony deformities or tenderness. No CVA tenderness. UPPER EXTREMITIES: 2+ pulses, warm, well-perfused. No cyanosis. No clubbing. No peripheral edema. LOWER EXTREMITIES: 2+ pulses, warm, well-perfused. No calf tenderness. No peripheral edema. NEUROLOGICAL: Cranial nerves II-XII intact. Normal speech. Laboratory Results - last 24 hr 08/02/18 06:21 Urine HCG, Qual Negative ASSESSMENT/PLAN: 47 year-old female with a PMH significant for major depressive disorder. She presents today for ECT. Cardiac --no cardiac history --Revised Cardiac Risk Index for Pre-Operative Risk: 0 points, 0.4% risk of major cardiac event Pulmonary --no pulmonary history Neurological --no neurological or neurosurgical history; no history of trauma Anesthesia --no reported problems with anesthesia ECT is a low risk procedure. The relative benefits of the planned procedure outweigh the relative risks for this patient at this time. Visit type - Emergency Visit Emergency Visit: No - New Patient This patient is new to me today: Yes Date on this admission: 08/02/18 - Critical Care Critical Care patient: No
[2018-08-02 10:19] VITALS: BP 108/68; PULSE 89
== END 2018-08-02 09:35 | disposition home or self-care (01) ==
LOC: FECT 05:46
PROVIDERS: ATTEND Psychiatry & Neurology Psychiatry
PROC: GZB4ZZZ Other Electroconvulsive Therapy (ICD-10-PCS; principal; 2018-08-02 07:45)
DX: F32.9 Major depressive disorder, single episode, unspecified (principal)
CPT/HCPCS: 84703; 90870; 94760

== ENCOUNTER → 2018-08-16 | Day surgery (SDC) | payer OTHER ==
[2018-08-16 07:08] VITALS: BP 114/68; PULSE 85; TEMP 98.1; BMI 34.0
== END | disposition home or self-care (01) ==
LOC: FECT 08-09 05:45
PROVIDERS: ATTEND Psychiatry & Neurology Psychiatry
PROC: GZB4ZZZ Other Electroconvulsive Therapy (ICD-10-PCS; principal; 2018-08-16)
DX: F33.2 Major depressive disorder, recurrent severe without psychotic features (principal); Z53.09 Procedure and treatment not carried out because of other contraindication
CPT/HCPCS: 84703

== ENCOUNTER 2018-08-23 05:49 | Day surgery (SDC) | payer OTHER ==
[2018-08-23 07:27] VITALS: TEMP 97.8; BMI 34.0
[2018-08-23] MEDS ORDERED: KETAMINE HCL SYRINGES 150 MG/3 ML ONE (08:07)
[2018-08-23 09:26] VITALS: BP 129/77; PULSE 74
== END 2018-08-23 09:30 | disposition home or self-care (01) ==
LOC: FECT 05:49
PROVIDERS: ATTEND Psychiatry & Neurology Psychiatry
PROC: GZB4ZZZ Other Electroconvulsive Therapy (ICD-10-PCS; principal; 2018-08-23 07:45)
DX: F32.9 Major depressive disorder, single episode, unspecified (principal)
CPT/HCPCS: 84703; 90870; 94760

== ENCOUNTER 2018-08-30 05:43 | Day surgery (SDC) | payer OTHER ==
[2018-08-30 06:39] VITALS: TEMP 98.3; BMI 35.8
[2018-08-30] MEDS ORDERED: KETAMINE HCL SYRINGES 150 MG/3 ML ONE (07:24)
--- NOTE | 2018-08-30 08:20 | HP ---
CHIEF COMPLAINT: Major Depressive Disorder PCP: Dr. Dallas [place] Primary psych: Dr. Pickering Brice HISTORY OF PRESENT ILLNESS: 47 year-old female with a PMH significant for major depressive disorder. Patient started ECT Summer 2017. She presents today for ECT. Recent events: * None reported PAST MEDICAL HISTORY: Major depressive disorder PAST SURGICAL HISTORY: None reported Social History: Smoking: never Alcohol: no Drugs: no Allergies No Known Drug Allergies Allergy (Verified 06/14/18 16:10) HOME MEDICATIONS: Home Medications Medication Instructions Recorded Escitalopram Oxalate [Lexapro -] 20 mg PO DAILY 01/18/18 Lamotrigine [LaMICtal -] 450 mg PO HS 01/18/18 clonazePAM [Klonopin -] 0.5 mg PO BID 01/18/18 Quetiapine Fumarate [Seroquel -] 350 mg PO BID 03/09/18 Brexpiprazole [Rexulti] 2 mg PO DAILY 04/26/18 Cannabidiol (Cbd) Extract 100 mg PO HS 08/02/18 [Epidiolex] REVIEW OF SYSTEMS CONSTITUTIONAL: Absent: fever, chills, diaphoresis, generalized weakness, malaise, loss of appetite, weight change HEENT: Absent: rhinorrhea, nasal congestion, throat pain, throat swelling, difficulty swallowing, mouth swelling, ear pain, eye pain, visual changes CARDIOVASCULAR: Absent: chest pain, syncope, palpitations, irregular heart rate, lightheadedness , peripheral edema RESPIRATORY: Absent: cough, shortness of breath, dyspnea with exertion, orthopnea, wheezing, stridor, hemoptysis GASTROINTESTINAL: Absent: abdominal pain, abdominal distension, nausea, vomiting, diarrhea, constipation, melena, hematochezia GENITOURINARY: Absent: dysuria, frequency, urgency, hesitancy, hematuria, flank pain, genital pain MUSCULOSKELETAL: Absent: myalgia, arthralgia, joint swelling, back pain, neck pain SKIN: Absent: rash, itching, pallor HEMATOLOGIC/IMMUNOLOGIC: Absent: easy bleeding, easy bruising, lymphadenopathy, frequent infections ENDOCRINE: Absent: unexplained weight gain, unexplained weight loss, heat intolerance, cold intolerance NEUROLOGIC: Absent: headache, focal weakness or paresthesias, dizziness, unsteady gait, seizure, mental status changes, bladder or bowel incontinence PHYSICAL EXAMINATION Vital Signs - 24 hr 08/30/18 06:29 Temperature 98.3 F Pulse Rate 83 Respiratory 18 Rate Blood Pressure 119/74 O2 Sat by Pulse 96 Oximetry (%) GENERAL: Awake, alert, and fully oriented, in no acute distress. HEAD: Normal with no signs of trauma. EYES: Pupils equal, round and reactive to light, sclera anicteric, conjunctiva clear. LUNGS: Breath sounds equal, clear to auscultation bilaterally. No wheezes, and no crackles. No accessory muscle use. HEART: Regular rate and rhythm, normal S1 and S2 ABDOMEN: Soft, nontender, not distended MUSCULOSKELETAL: Normal range of motion at all joints. No bony deformities or tenderness. No CVA tenderness. UPPER EXTREMITIES: 2+ pulses, warm, well-perfused. No cyanosis. No clubbing. No peripheral edema. LOWER EXTREMITIES: 2+ pulses, warm, well-perfused. No calf tenderness. No peripheral edema. NEUROLOGICAL: Cranial nerves II-XII intact. Normal speech. ASSESSMENT/PLAN: 47 year-old female with a PMH significant for major depressive disorder. She presents today for ECT. Cardiac --no cardiac history --Revised Cardiac Risk Index for Pre-Operative Risk: 0 points, 0.4% risk of major cardiac event Pulmonary --no pulmonary history Neurological --no neurological or neurosurgical history; no history of trauma Anesthesia --no reported problems with anesthesia ECT is a low risk procedure. The relative benefits of the planned procedure outweigh the relative risks for this patient at this time. Visit type - Emergency Visit Emergency Visit: No - New Patient This patient is new to me today: Yes Date on this admission: 08/30/18 - Critical Care Critical Care patient: No
[2018-08-30 09:00] VITALS: BP 137/80; PULSE 80
[2018-08-30] MEDS ORDERED: LACTATED RINGERS SOLUTION 1,000 ML IV SCH (11:45)
== END 2018-08-30 09:15 | disposition home or self-care (01) ==
LOC: FECT 05:43
PROVIDERS: ATTEND Psychiatry & Neurology Psychiatry
PROC: GZB4ZZZ Other Electroconvulsive Therapy (ICD-10-PCS; principal; 2018-08-30 07:45)
DX: F32.9 Major depressive disorder, single episode, unspecified (principal)
CPT/HCPCS: 81025; 90870; 94760

== ENCOUNTER 2018-09-06 05:49 | Day surgery (SDC) | payer OTHER ==
[2018-09-06 07:14] VITALS: BMI 35.8
[2018-09-06] MEDS ORDERED: ACETAMINOPHEN 325 MG TABLET (FP) PO PRN (07:22)
[2018-09-06] MEDS ORDERED: ONDANSETRON 4 MG/2 ML VIAL IVPUSH PRN (07:22)
[2018-09-06] MEDS ORDERED: KETAMINE HCL SYRINGES 150 MG/3 ML ONE (07:40)
[2018-09-06 09:27] VITALS: BP 139/66; PULSE 80; TEMP 97.7
== END 2018-09-06 09:30 | disposition home or self-care (01) ==
LOC: FECT 05:49
PROVIDERS: ATTEND Psychiatry & Neurology Psychiatry
PROC: GZB4ZZZ Other Electroconvulsive Therapy (ICD-10-PCS; principal; 2018-09-06 08:00)
DX: F32.9 Major depressive disorder, single episode, unspecified (principal)
CPT/HCPCS: 81025; 90870; 94760

== ENCOUNTER 2018-09-13 05:41 | Day surgery (SDC) | payer OTHER ==
[2018-09-07 17:13] VITALS: BMI 35.8
[2018-09-13 07:00] VITALS: TEMP 98.2
[2018-09-13] MEDS ORDERED: KETAMINE HCL SYRINGES 150 MG/3 ML ONE (07:34)
[2018-09-13 08:53] VITALS: BP 108/76; PULSE 84
== END 2018-09-13 09:50 | disposition home or self-care (01) ==
LOC: FECT 05:41
PROVIDERS: ATTEND Psychiatry & Neurology Psychiatry
PROC: GZB4ZZZ Other Electroconvulsive Therapy (ICD-10-PCS; principal; 2018-09-13 07:15)
DX: F32.9 Major depressive disorder, single episode, unspecified (principal)
CPT/HCPCS: 81025; 90870; 94760

== ENCOUNTER 2018-09-20 05:40 | Day surgery (SDC) | payer OTHER ==
[2018-09-20 07:35] VITALS: TEMP 98.2; BMI 35.8
[2018-09-20] MEDS ORDERED: KETAMINE HCL SYRINGES 150 MG/3 ML ONE (07:59)
[2018-09-20 09:46] VITALS: BP 139/87; PULSE 86
== END 2018-09-20 09:40 | disposition home or self-care (01) ==
LOC: FECT 05:40
PROVIDERS: ATTEND Psychiatry & Neurology Psychiatry
PROC: GZB4ZZZ Other Electroconvulsive Therapy (ICD-10-PCS; principal; 2018-09-20 07:30)
DX: F32.9 Major depressive disorder, single episode, unspecified (principal)
CPT/HCPCS: 84703; 90870; 94760

== ENCOUNTER 2018-09-27 05:43 | Day surgery (SDC) | payer OTHER ==
[2018-09-27 07:12] VITALS: TEMP 98; BMI 35.8
[2018-09-27] MEDS ORDERED: KETAMINE HCL SYRINGES 150 MG/3 ML ONE (07:48)
[2018-09-27 09:39] VITALS: BP 116/66; PULSE 77
--- NOTE | 2018-09-27 12:02 | HP ---
CHIEF COMPLAINT: Major Depressive Disorder PCP: Dr. Dallas [place] Primary psych: Dr. Pickering Powers HISTORY OF PRESENT ILLNESS: 47 year-old female with a PMH significant for major depressive disorder. Patient started ECT Summer 2017. She presents today for ECT. Recent events: * None reported PAST MEDICAL HISTORY: Major depressive disorder PAST SURGICAL HISTORY: None reported Social History: Smoking: never Alcohol: no Drugs: no Allergies No Known Drug Allergies Allergy (Verified 06/14/18 16:10) HOME MEDICATIONS: Home Medications Medication Instructions Recorded Escitalopram Oxalate [Lexapro -] 20 mg PO DAILY 01/18/18 Lamotrigine [LaMICtal -] 450 mg PO HS 01/18/18 Quetiapine Fumarate [Seroquel -] 350 mg PO BID 03/09/18 Brexpiprazole [Rexulti] 2 mg PO DAILY 04/26/18 Clonazepam 1 mg PO BID 09/20/18 REVIEW OF SYSTEMS CONSTITUTIONAL: Absent: fever, chills, diaphoresis, generalized weakness, malaise, loss of appetite, weight change HEENT: Absent: rhinorrhea, nasal congestion, throat pain, throat swelling, difficulty swallowing, mouth swelling, ear pain, eye pain, visual changes CARDIOVASCULAR: Absent: chest pain, syncope, palpitations, irregular heart rate, lightheadedness , peripheral edema RESPIRATORY: Absent: cough, shortness of breath, dyspnea with exertion, orthopnea, wheezing, stridor, hemoptysis GASTROINTESTINAL: Absent: abdominal pain, abdominal distension, nausea, vomiting, diarrhea, constipation, melena, hematochezia GENITOURINARY: Absent: dysuria, frequency, urgency, hesitancy, hematuria, flank pain, genital pain MUSCULOSKELETAL: Absent: myalgia, arthralgia, joint swelling, back pain, neck pain SKIN: Absent: rash, itching, pallor HEMATOLOGIC/IMMUNOLOGIC: Absent: easy bleeding, easy bruising, lymphadenopathy, frequent infections ENDOCRINE: Absent: unexplained weight gain, unexplained weight loss, heat intolerance, cold intolerance NEUROLOGIC: Absent: headache, focal weakness or paresthesias, dizziness, unsteady gait, seizure, mental status changes, bladder or bowel incontinence PHYSICAL EXAMINATION Vital Signs - 24 hr 09/27/18 09/27/18 09/27/18 07:02 08:17 08:22 Temperature 98.0 F Pulse Rate 80 82 85 Respiratory 18 13 13 Rate Blood Pressure 109/68 118/64 124/63 O2 Sat by Pulse 96 100 100 Oximetry (%) 09/27/18 09/27/18 09/27/18 08:27 08:32 08:45 Temperature Pulse Rate 83 81 81 Respiratory 14 14 14 Rate Blood Pressure 127/61 117/68 113/65 O2 Sat by Pulse 97 97 Oximetry (%) 09/27/18 09/27/18 09/27/18 08:50 09:20 09:50 Temperature 98.0 F 98.0 F 98.0 F Pulse Rate 79 77 77 Respiratory 18 18 18 Rate Blood Pressure 111/64 116/66 116/66 O2 Sat by Pulse 95 97 Oximetry (%) GENERAL: Awake, alert, and fully oriented, in no acute distress. HEAD: Normal with no signs of trauma. EYES: Pupils equal, round and reactive to light, sclera anicteric, conjunctiva clear. LUNGS: Breath sounds equal, clear to auscultation bilaterally. No wheezes, and no crackles. No accessory muscle use. HEART: Regular rate and rhythm, normal S1 and S2 ABDOMEN: Soft, nontender, not distended MUSCULOSKELETAL: Normal range of motion at all joints. No bony deformities or tenderness. No CVA tenderness. UPPER EXTREMITIES: 2+ pulses, warm, well-perfused. No cyanosis. No clubbing. No peripheral edema. LOWER EXTREMITIES: 2+ pulses, warm, well-perfused. No calf tenderness. No peripheral edema. NEUROLOGICAL: Cranial nerves II-XII intact. Normal speech. Laboratory Results - last 24 hr 09/27/18 07:20 POC Urine HCG, Qual Negative ASSESSMENT/PLAN: 47 year-old female with a PMH significant for major depressive disorder. She presents today for ECT. Cardiac --no cardiac history --Revised Cardiac Risk Index for Pre-Operative Risk: 0 points, 0.4% risk of major cardiac event Pulmonary --no pulmonary history Neurological --no neurological or neurosurgical history; no history of trauma Anesthesia --no reported problems with anesthesia ECT is a low risk procedure. The relative benefits of the planned procedure outweigh the relative risks for this patient at this time. Visit type - Emergency Visit Emergency Visit: No - New Patient This patient is new to me today: Yes Date on this admission: 09/27/18 - Critical Care Critical Care patient: No
== END 2018-09-27 09:50 | disposition home or self-care (01) ==
LOC: FECT 05:43
PROVIDERS: ATTEND Psychiatry & Neurology Psychiatry
PROC: GZB4ZZZ Other Electroconvulsive Therapy (ICD-10-PCS; principal; 2018-09-27 08:00)
DX: F32.9 Major depressive disorder, single episode, unspecified (principal)
CPT/HCPCS: 81025; 90870; 94760

== ENCOUNTER 2018-10-04 05:45 | Day surgery (SDC) | payer OTHER ==
[2018-10-04 06:51] VITALS: BMI 35.8
[2018-10-04] MEDS ORDERED: KETAMINE HCL SYRINGES 150 MG/3 ML ONE (07:11)
[2018-10-04 08:44] VITALS: TEMP 97.8
[2018-10-04] MEDS ORDERED: ONDANSETRON 4 MG/2 ML VIAL IVPUSH PRN (08:52)
[2018-10-04] MEDS ORDERED: LACTATED RINGERS SOLUTION 1,000 ML IV SCH (09:00)
[2018-10-04 09:06] VITALS: BP 122/71; PULSE 86
== END 2018-10-04 09:30 | disposition home or self-care (01) ==
LOC: FECT 05:45
PROVIDERS: ATTEND Psychiatry & Neurology Psychiatry
PROC: GZB4ZZZ Other Electroconvulsive Therapy (ICD-10-PCS; principal; 2018-10-04 07:45)
DX: F33.2 Major depressive disorder, recurrent severe without psychotic features (principal)
CPT/HCPCS: 81025; 90870; 94760

== ENCOUNTER 2018-10-11 05:43 | Day surgery (SDC) | payer OTHER ==
[2018-10-07 12:04] VITALS: BMI 35.8
[2018-10-11] MEDS ORDERED: KETAMINE HCL SYRINGES 150 MG/3 ML ONE (07:48)
[2018-10-11 09:11] VITALS: TEMP 98.2
[2018-10-11] MEDS ORDERED: ONDANSETRON 4 MG/2 ML VIAL IVPUSH PRN (09:16)
[2018-10-11] MEDS ORDERED: LACTATED RINGERS SOLUTION 1,000 ML IV SCH (09:30)
[2018-10-11 10:17] VITALS: BP 110/67; PULSE 88
== END 2018-10-11 09:50 | disposition home or self-care (01) ==
LOC: FECT 05:43
PROVIDERS: ATTEND Psychiatry & Neurology Psychiatry
PROC: GZB4ZZZ Other Electroconvulsive Therapy (ICD-10-PCS; principal; 2018-10-11 07:15)
DX: F32.9 Major depressive disorder, single episode, unspecified (principal)
CPT/HCPCS: 81025; 90870; 94760

== ENCOUNTER 2018-10-25 05:42 | Day surgery (SDC) | payer OTHER ==
[2018-10-25] MEDS ORDERED: KETAMINE HCL SYRINGES 150 MG/3 ML ONE (07:17)
[2018-10-25 08:38] VITALS: TEMP 97.8
[2018-10-25 09:11] VITALS: BP 110/80; PULSE 81
[2018-10-25] MEDS ORDERED: ONDANSETRON 4 MG/2 ML VIAL IVPUSH PRN (11:46)
[2018-10-25] MEDS ORDERED: ACETAMINOPHEN 325 MG TABLET (FP) PO PRN (11:46)
[2018-10-25] MEDS ORDERED: LACTATED RINGERS SOLUTION 1,000 ML IV SCH (12:00)
--- NOTE | 2018-10-25 17:05 | HP ---
CHIEF COMPLAINT: Major Depressive Disorder PCP: Dr. Dallas [place] Primary psych: Dr. Pickering Zwingle HISTORY OF PRESENT ILLNESS: 47 year-old female with a PMH significant for major depressive disorder. Patient started ECT Summer 2017. She presents today for ECT. Recent events: * None reported PAST MEDICAL HISTORY: Major depressive disorder PAST SURGICAL HISTORY: None reported Social History: Smoking: never Alcohol: no Drugs: no Allergies No Known Drug Allergies Allergy (Verified 10/25/18 06:47) HOME MEDICATIONS: Home Medications Medication Instructions Recorded Escitalopram Oxalate [Lexapro -] 10 mg PO DAILY 01/18/18 Lamotrigine [LaMICtal -] 400 mg PO HS 01/18/18 Quetiapine Fumarate [Seroquel -] 300 mg PO BID 03/09/18 Brexpiprazole [Rexulti] 2 mg PO DAILY 04/26/18 Clonazepam 1 mg PO BID 09/20/18 REVIEW OF SYSTEMS CONSTITUTIONAL: Absent: fever, chills, diaphoresis, generalized weakness, malaise, loss of appetite, weight change HEENT: Absent: rhinorrhea, nasal congestion, throat pain, throat swelling, difficulty swallowing, mouth swelling, ear pain, eye pain, visual changes CARDIOVASCULAR: Absent: chest pain, syncope, palpitations, irregular heart rate, lightheadedness , peripheral edema RESPIRATORY: Absent: cough, shortness of breath, dyspnea with exertion, orthopnea, wheezing, stridor, hemoptysis GASTROINTESTINAL: Absent: abdominal pain, abdominal distension, nausea, vomiting, diarrhea, constipation, melena, hematochezia GENITOURINARY: Absent: dysuria, frequency, urgency, hesitancy, hematuria, flank pain, genital pain MUSCULOSKELETAL: Absent: myalgia, arthralgia, joint swelling, back pain, neck pain SKIN: Absent: rash, itching, pallor HEMATOLOGIC/IMMUNOLOGIC: Absent: easy bleeding, easy bruising, lymphadenopathy, frequent infections ENDOCRINE: Absent: unexplained weight gain, unexplained weight loss, heat intolerance, cold intolerance NEUROLOGIC: Absent: headache, focal weakness or paresthesias, dizziness, unsteady gait, seizure, mental status changes, bladder or bowel incontinence PHYSICAL EXAMINATION Vital Signs - 24 hr 10/25/18 10/25/18 10/25/18 06:53 07:57 08:00 Temperature 97.6 F Pulse Rate 76 91 H 86 Respiratory 17 13 12 Rate Blood Pressure 117/69 174/93 H 132/54 L O2 Sat by Pulse 96 92 L 95 Oximetry (%) 10/25/18 10/25/18 10/25/18 08:05 08:10 08:18 Temperature Pulse Rate 87 82 81 Respiratory 17 20 14 Rate Blood Pressure 123/64 113/67 114/75 O2 Sat by Pulse 95 98 Oximetry (%) 10/25/18 10/25/18 10/25/18 08:25 08:55 09:45 Temperature 97.8 F 97.8 F Pulse Rate 80 81 81 Respiratory 20 18 18 Rate Blood Pressure 124/71 110/80 110/80 O2 Sat by Pulse 95 95 Oximetry (%) GENERAL: Awake, alert, and fully oriented, in no acute distress. HEAD: Normal with no signs of trauma. EYES: Pupils equal, round and reactive to light, sclera anicteric, conjunctiva clear. LUNGS: Breath sounds equal, clear to auscultation bilaterally. No wheezes, and no crackles. No accessory muscle use. HEART: Regular rate and rhythm, normal S1 and S2 ABDOMEN: Soft, nontender, not distended MUSCULOSKELETAL: Normal range of motion at all joints. No bony deformities or tenderness. No CVA tenderness. UPPER EXTREMITIES: 2+ pulses, warm, well-perfused. No cyanosis. No clubbing. No peripheral edema. LOWER EXTREMITIES: 2+ pulses, warm, well-perfused. No calf tenderness. No peripheral edema. NEUROLOGICAL: Cranial nerves II-XII intact. Normal speech. Laboratory Results - last 24 hr 10/25/18 07:05 POC Urine HCG, Qual Negative ASSESSMENT/PLAN: 47 year-old female with a PMH significant for major depressive disorder. She presents today for ECT. Cardiac --no cardiac history --Revised Cardiac Risk Index for Pre-Operative Risk: 0 points, 0.4% risk of major cardiac event Pulmonary --no pulmonary history Neurological --no neurological or neurosurgical history; no history of trauma Anesthesia --no reported problems with anesthesia ECT is a low risk procedure. The relative benefits of the planned procedure outweigh the relative risks for this patient at this time. Visit type - Emergency Visit Emergency Visit: No - New Patient This patient is new to me today: Yes Date on this admission: 10/26/18 - Critical Care Critical Care patient: No
== END 2018-10-25 09:45 | disposition home or self-care (01) ==
LOC: FECT 05:42
PROVIDERS: ATTEND Psychiatry & Neurology Psychiatry
PROC: GZB4ZZZ Other Electroconvulsive Therapy (ICD-10-PCS; principal; 2018-10-25 07:15)
DX: F33.2 Major depressive disorder, recurrent severe without psychotic features (principal)
CPT/HCPCS: 81025; 90870; 94760

== ENCOUNTER 2018-11-08 05:45 | Day surgery (SDC) | payer OTHER | END 2018-11-08 09:30 | disposition home or self-care (01) | LOC: FECT 05:45 | PROC: GZB4ZZZ Other Electroconvulsive Therapy (ICD-10-PCS; principal; 2018-11-08 07:30) | DX: F32.9 Major depressive disorder, single episode, unspecified (principal) ==

== ENCOUNTER 2018-11-15 05:39 | Day surgery (SDC) | payer OTHER ==
[2018-11-15 07:03] VITALS: BMI 34.7
[2018-11-15] MEDS ORDERED: KETAMINE HCL 500 MG/10 ML VIAL ONE (07:17)
[2018-11-15 08:37] VITALS: BP 125/76; TEMP 98.3
[2018-11-15 10:19] VITALS: PULSE 81
== END 2018-11-15 10:00 | disposition home or self-care (01) ==
LOC: FECT 05:39
PROVIDERS: ATTEND Psychiatry & Neurology Psychiatry
PROC: GZB4ZZZ Other Electroconvulsive Therapy (ICD-10-PCS; principal; 2018-11-15 07:30)
DX: F32.9 Major depressive disorder, single episode, unspecified (principal)
CPT/HCPCS: 81025; 90870; 94760

== ENCOUNTER 2018-11-29 06:01 | Day surgery (SDC) | payer OTHER | END 2018-11-29 10:00 | disposition home or self-care (01) | LOC: FECT 06:01 ==

== ENCOUNTER 2018-12-06 06:12 | Day surgery (SDC) | payer OTHER | END 2018-12-06 11:05 | disposition home or self-care (01) | LOC: FECT 06:12 ==

== ENCOUNTER 2018-12-13 05:40 | Day surgery (SDC) | payer OTHER | END 2018-12-13 09:45 | disposition home or self-care (01) | LOC: FECT 05:40 ==

== ENCOUNTER 2018-12-20 05:49 | Day surgery (SDC) | payer OTHER | END 2018-12-20 09:45 | disposition home or self-care (01) | LOC: FECT 05:49 ==

== ENCOUNTER 2018-12-27 05:39 | Day surgery (SDC) | payer OTHER ==
[2018-12-20 14:50] VITALS: BMI 35.6
[2018-12-27] MEDS ORDERED: KETAMINE HCL 500 MG/10 ML VIAL ONE (07:49)
[2018-12-27 09:23] VITALS: BP 110/64; PULSE 71; TEMP 98
== END 2018-12-27 10:00 | disposition home or self-care (01) ==
LOC: FECT 05:39
PROVIDERS: ATTEND Psychiatry & Neurology Psychiatry
PROC: GZB4ZZZ Other Electroconvulsive Therapy (ICD-10-PCS; principal; 2018-12-27 07:30)
DX: F32.9 Major depressive disorder, single episode, unspecified (principal)
CPT/HCPCS: 90870; 94760

== ENCOUNTER 2019-01-03 05:37 | Day surgery (SDC) | payer OTHER ==
[2018-12-27 15:38] VITALS: BMI 35.6
[2019-01-03] MEDS ORDERED: LACTATED RINGERS SOLUTION 1,000 ML IV SCH (07:00)
[2019-01-03] MEDS ORDERED: KETAMINE HCL 500 MG/10 ML VIAL ONE (07:56)
[2019-01-03 09:17] VITALS: TEMP 98.5
[2019-01-03 09:19] VITALS: BP 126/86; PULSE 79
== END 2019-01-03 10:00 | disposition home or self-care (01) ==
LOC: FECT 05:37
PROVIDERS: ATTEND Psychiatry & Neurology Psychiatry
PROC: GZB4ZZZ Other Electroconvulsive Therapy (ICD-10-PCS; principal; 2019-01-03 07:45)
DX: F32.9 Major depressive disorder, single episode, unspecified (principal)
CPT/HCPCS: 81025; 90870; 94760

== ENCOUNTER 2019-01-10 05:40 | Day surgery (SDC) | payer OTHER ==
[2019-01-10 06:59] VITALS: BMI 35.6
[2019-01-10] MEDS ORDERED: KETAMINE HCL 500 MG/10 ML VIAL ONE (07:41)
[2019-01-10 08:51] VITALS: PULSE 72
[2019-01-10 09:26] VITALS: BP 131/75; TEMP 98
== END 2019-01-10 10:00 | disposition home or self-care (01) ==
LOC: FECT 05:40
PROVIDERS: ATTEND Psychiatry & Neurology Psychiatry
PROC: GZB4ZZZ Other Electroconvulsive Therapy (ICD-10-PCS; principal; 2019-01-10 07:30)
DX: F33.2 Major depressive disorder, recurrent severe without psychotic features (principal)
CPT/HCPCS: 81025; 90870; 94760

== ENCOUNTER 2019-01-17 05:45 | Day surgery (SDC) | payer OTHER ==
[2019-01-17 07:06] VITALS: TEMP 98; BMI 35.6
[2019-01-17] MEDS ORDERED: KETAMINE HCL 500 MG/10 ML VIAL ONE (07:32)
--- NOTE | 2019-01-17 08:21 | HP ---
CHIEF COMPLAINT: Major Depressive Disorder PCP: Dr. Dallas [place] Primary psych: Dr. Pickering Jacob HISTORY OF PRESENT ILLNESS: 47 year-old female with a PMH significant for major depressive disorder. Patient started ECT Summer 2017. She presents today for ECT. Recent events: * Depressive symptoms worse, feels ECT not working; may go to [facility] this week, has recommendation for good doctor there; will be staying with family PAST MEDICAL HISTORY: Major depressive disorder PAST SURGICAL HISTORY: None reported Social History: Smoking: never Alcohol: no Drugs: no Allergies No Known Drug Allergies Allergy (Verified 12/27/18 15:34) HOME MEDICATIONS: Home Medications Medication Instructions Recorded Lamotrigine [LaMICtal -] 400 mg PO HS 01/18/18 Quetiapine Fumarate [Seroquel -] 300 mg PO BID 03/09/18 Brexpiprazole [Rexulti] 2 mg PO DAILY 04/26/18 Clonazepam 1 mg PO BID 09/20/18 Phenelzine Sulfate [Nardil] 15 mg PO DAILY 12/27/18 Phenelzine Sulfate [Nardil] 30 mg PO HS 01/03/19 REVIEW OF SYSTEMS CONSTITUTIONAL: Absent: fever, chills, diaphoresis, generalized weakness, malaise, loss of appetite, weight change HEENT: Absent: rhinorrhea, nasal congestion, throat pain, throat swelling, difficulty swallowing, mouth swelling, ear pain, eye pain, visual changes CARDIOVASCULAR: Absent: chest pain, syncope, palpitations, irregular heart rate, lightheadedness , peripheral edema RESPIRATORY: Absent: cough, shortness of breath, dyspnea with exertion, orthopnea, wheezing, stridor, hemoptysis GASTROINTESTINAL: Absent: abdominal pain, abdominal distension, nausea, vomiting, diarrhea, constipation, melena, hematochezia GENITOURINARY: Absent: dysuria, frequency, urgency, hesitancy, hematuria, flank pain, genital pain MUSCULOSKELETAL: Absent: myalgia, arthralgia, joint swelling, back pain, neck pain SKIN: Absent: rash, itching, pallor HEMATOLOGIC/IMMUNOLOGIC: Absent: easy bleeding, easy bruising, lymphadenopathy, frequent infections ENDOCRINE: Absent: unexplained weight gain, unexplained weight loss, heat intolerance, cold intolerance NEUROLOGIC: Absent: headache, focal weakness or paresthesias, dizziness, unsteady gait, seizure, mental status changes, bladder or bowel incontinence PHYSICAL EXAMINATION Vital Signs - 24 hr 07/23/19 07:01 Temperature 98.0 F Pulse Rate 64 Respiratory 18 Rate Blood Pressure 107/77 O2 Sat by Pulse 96 Oximetry (%) GENERAL: Awake, alert, and fully oriented, in no acute distress. HEAD: Normal with no signs of trauma. EYES: Pupils equal, round and reactive to light, sclera anicteric, conjunctiva clear. LUNGS: Breath sounds equal, clear to auscultation bilaterally. No wheezes, and no crackles. No accessory muscle use. HEART: Regular rate and rhythm, normal S1 and S2 ABDOMEN: Soft, nontender, not distended MUSCULOSKELETAL: Normal range of motion at all joints. No bony deformities or tenderness. No CVA tenderness. UPPER EXTREMITIES: 2+ pulses, warm, well-perfused. No cyanosis. No clubbing. No peripheral edema. LOWER EXTREMITIES: 2+ pulses, warm, well-perfused. No calf tenderness. No peripheral edema. NEUROLOGICAL: Cranial nerves II-XII intact. Normal speech. Laboratory Results - last 24 hr 01/17/19 07:11 POC Urine HCG, Qual Negative ASSESSMENT/PLAN: 47 year-old female with a PMH significant for major depressive disorder. She presents today for ECT. Cardiac --no cardiac history --Revised Cardiac Risk Index for Pre-Operative Risk: 0 points, 0.4% risk of major cardiac event Pulmonary --no pulmonary history Neurological --no neurological or neurosurgical history; no history of trauma Anesthesia --no reported problems with anesthesia ECT is a low risk procedure. The relative benefits of the planned procedure outweigh the relative risks for this patient at this time. Visit type - Emergency Visit Emergency Visit: No - New Patient This patient is new to me today: Yes Date on this admission: 01/17/19 - Critical Care Critical Care patient: No
[2019-01-17] MEDS ORDERED: ACETAMINOPHEN 325 MG TABLET (FP) ONE (08:31)
[2019-01-17] MEDS ORDERED: ACETAMINOPHEN 325 MG TABLET (FP) PO PRN (08:34)
[2019-01-17 09:12] VITALS: BP 112/70; PULSE 70
== END 2019-01-17 10:00 | disposition home or self-care (01) ==
LOC: FECT 05:45
PROVIDERS: ATTEND Psychiatry & Neurology Psychiatry
PROC: GZB4ZZZ Other Electroconvulsive Therapy (ICD-10-PCS; principal; 2019-01-17 07:30)
DX: F32.9 Major depressive disorder, single episode, unspecified (principal)
CPT/HCPCS: 81025; 90870; 94760